=== PATIENT | female | born 1940 | race Caucasian/White ===

== ENCOUNTER 2017-02-14 20:59 | Emergency (ER) | payer BC ==
[2017-02-14 21:10] VITALS: BP 154/80; PULSE 64; TEMP 97.3; BMI 22.3
--- NOTE | 2017-02-14 21:45 | PDOC ---
History of Present Illness - General History Source: Patient Exam Limitations: No Limitations - History of Present Illness Initial Comments: The patient is a 76 yo F with a PMHx of choleolithiasis, hypertension, hyperlipidemia, PA (26 years ago), CAD with 2 stents on Plavix and chronic bronchitis presents with pain and edema of the tip of the R index finger for about a week and a half. Patient states she saw her PCP who put her on Clindamycin. Patient states she first noticed the pain when she was pushing the buttons on a security gate and her nail bent backwards. Patient denies fevers, chills and cough. 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 Allergies: amoxicillin PCP: Dr. Conde <Francesca Moreira - Last Filed: 02/14/17 21:55> <Brigitte Hillman - Last Filed: 02/15/17 04:15> - General Chief Complaint: Pain Stated Complaint: INFECTION RIGHT INDEX FINGER Time Seen by Provider: 02/14/17 21:26 Past History <Francesca Moreira - Last Filed: 02/14/17 21:55> - Past Medical History Anemia: No Asthma: No Cancer: No Cardiac Disorders: Yes (STENTS placed 10 years ago, CAD with [place] 25 years ago) CVA: No COPD: No CHF: No Dementia: No Diabetes: No GI Disorders: No Disorders: No HTN: Yes Hypercholesterolemia: Yes Liver Disease: No Suicide Attempt (Hx): No Seizures: No Thyroid Disease: No - Surgical History Abdominal Surgery: No Appendectomy: No Cardiac Surgery: Yes (2 STENTS) Cholecystectomy: No Lung Surgery: No Neurologic Surgery: No Orthopedic Surgery: No - Immunization History Immunization Up to Date: Yes - Psycho/Social/Smoking Cessation Hx Anxiety: No Suicidal Ideation: No Smoking Status: Yes Smoking History: Current every day smoker Years of Tobacco Use: 40 Have you smoked in the past 12 months: Yes Number of Cigarettes Smoked Daily: 20 Information on smoking cessation initiated: Yes 'Breaking Loose' booklet given: 06/15/16 Hx Alcohol Use: Yes (WINE DAILY) Drug/Substance Use Hx: No Substance Use Type: None Hx Substance Use Treatment: No <Brigitte Hillman - Last Filed: 02/15/17 04:15> - Past Medical History Allergies/Adverse Reactions: Allergies Allergy/AdvReac Type Severity Reaction Status Date / Time amoxicillin Allergy Verified 02/14/17 21:02 Home Medications: Ambulatory Orders Aspirin Coated [Ecotrin -] 325 mg PO DAILY 12/17/11 Atorvastatin Ca [Lipitor] 80 mg PO DAILY 12/17/11 Clopidogrel Bisulfate [Plavix -] 75 mg PO DAILY 12/17/11 Metoprolol Succinate [Toprol XL -] 25 mg PO DAILY 12/17/11 Valsartan [Diovan] 80 mg PO DAILY 12/17/11 Review of Systems - Review of Systems Able to Perform ROS?: Yes Comments:: CONSTITUTIONAL: Absent: fever, no chills, no fatigue EYES: Absent: visual changes ENT: Absent: ear pain, no sore throat CARDIOVASCULAR: Absent: chest pain, no palpitations RESPIRATORY: Absent: cough, no SOB GI: Absent: abdominal pain, no nausea, no vomiting, no constipation, no diarrhea GENITOURINARY: Absent: dysuria, no frequency, no hematuria MUSKULOSKELETAL: +pain and edema of the tip of the R index finger. Absent: back pain, neck pain SKIN: Absent: rash <Francesca Moreira - Last Filed: 02/14/17 21:55> *Physical Exam - Vital Signs Last Vital Signs Temp Pulse Resp BP Pulse Ox 97.3 F L 64 15 154/80 100 02/14/17 21:04 02/14/17 21:04 02/14/17 21:04 02/14/17 21:04 02/14/17 21:04 - Physical Exam Comments: GENERAL: Well-appearing, well-nourished. No apparent distress. HEENT: Normocephalic, atraumatic. PERRL, EOM intact. CARDIOVASCULAR: Normal S1, S2. Regular rate and rhythm. PULMONARY: Clear to auscultation bilaterally. ABDOMEN: Soft, non-distended, non-tender. EXTREMITIES: Normal ROM in all four extremities. No gross deformities. Edematous and markedly tender distal phalanx of the R index finger with fluctuance bilateral periungual. Radial greater than ulnar. No evidence of direct trauma. No drainage. No lymphangitic streaking. Full mobility of finger present. SKIN: Warm, dry. No rash NEUROLOGICAL: No focal neurological deficits. <Francesca Moreira - Last Filed: 02/14/17 21:55> - Vital Signs Last Vital Signs Temp Pulse Resp BP Pulse Ox 97.3 F L 64 15 154/80 100 02/14/17 21:04 02/14/17 21:04 02/14/17 21:04 02/14/17 21:04 02/14/17 21:04 <RafyBrigitte Mcconnell - Last Filed: 02/15/17 04:15> Procedures - Incision and Drainage I&D Site: Right: Paronychia (index finger) Betadine cleansed: No (Hibiclens/ethanol) Anesthesia: 1% Lidocaine Volume(ml): 1 Blade Size: 11 Attempts: 1 Complications: none Dressing: Yes (sterile gauze 2 x 2 followed by tube dressing) Progress: Radial aspect of the right index finger, periungual region of the distal phalanx prepped using Hibiclens/ethanol and sterilely draped. 1 mL of 1% lidocaine injected for local anesthesia. 0.5 cm incision made with a #11 blade. Moderate amount of purulent drainage obtained and sample sent for culture and sensitivity. Wound was explored and further purulent drainage obtained. This was followed by moderate serosanguineous drainage. Because patient was in marked distress with manipulation of the wound, and there was no further purulent drainage or bleeding, packing placed. Bacitracin followed by sterile gauze and tube dressing placed <Brigitte Hillman - Last Filed: 02/15/17 04:15> Medical Decision Making - Medical Decision Making Documentation has been prepared under my direction and personally reviewed by me in its entirety. I attest that this documented accurately reflects all work, treatment, procedures and medical decision making performed by me. As noted above, this 76-year-old woman presents with painful swollen right index fingertip. Patient believes symptoms began when fingernail of this finger bent backward 10 days ago. She was seen by her general doctor 2 days ago and started on clindamycin but presented here because of persistent swelling and pain. Examination shows some fluctuance and tenderness, especially in the radial aspect of the fingernail. There is also a significant amount of tenderness and swelling in the palmar aspect of the distal phalanx, suggestive of pulp space infection. Paronychial incision and drainage performed as noted above. Because of the palmar aspect swelling and tenderness, patient will be referred to hand surgery( Dr. Juan Manuel Cotter information security manager for hand surgery this week). She should call office in the morning to be seen within the next 48 hours. She should return to the emergency room if pain/swelling persist. Meanwhile, patient should continue clindamycin as prescribed and elevate finger as much as possible. Patient asked for pain medication as needed for pain. Since she is currently taking Plavix, will not prescribe nonsteroidal anti-inflammatory medication. Patient did not want anything "strong". Suggested that patient use Tylenol. Patient given 2 tablets of 500 mg acetaminophen to be used at home (patient states that she does not have any acetaminophen at home at this time <Brigitte Hillman - Last Filed: 02/15/17 04:15> *DC/Admit/Observation/Transfer - Attestations Scribe Attestion: Documentation prepared by Francesca Moreira, acting as medical office assistant for Brigitte Hillman MD/DO. <Francesca Moreira - Last Filed: 02/14/17 21:55> <Brigitte Hillman - Last Filed: 02/15/17 04:15> Diagnosis at time of Disposition: Paronychia of right index finger - Discharge Dispostion Disposition: HOME Condition at time of disposition: Stable - Referrals Referrals: Nely Conde MD [Primary Care Provider] - Bayron Cotter MD [Staff Physician] - Call tomorrow - Patient Instructions Printed Discharge Instructions: Paronychia, Smoking Cessation Additional Instructions: Keep original bandage in place, elevating hand as much as possible Continue clindamycin as prescribed Call Dr. Cotter's office tomorrow to make appointment within the next 2 days Return to ER if you have severe pain, worsening swelling/redness or develop fever
[2017-02-14] MEDS ORDERED: ACETAMINOPHEN 500 MG TABLET (FP) ONE (22:42)
== END 2017-02-14 22:42 | disposition home or self-care (01) ==
LOC: FER 20:59
PROC: 0H9QXZZ Drainage of Finger Nail, External Approach (ICD-10-PCS; principal; 2017-02-14)
DX: L03.011 Cellulitis of right finger (principal); I10 Essential (primary) hypertension; E78.5 Hyperlipidemia, unspecified; I25.2 Old myocardial infarction; Z95.5 Presence of coronary angioplasty implant and graft; I25.10 Atherosclerotic heart disease of native coronary artery without angina pectoris; F17.210 Nicotine dependence, cigarettes, uncomplicated
CPT/HCPCS: 87070; 87076; 87186; 87205; 99281-25

== ENCOUNTER 2017-04-18 23:00 | Emergency (ER) | payer BC ==
--- NOTE | 2017-04-18 23:04 | PDOC ---
History of Present Illness - General Chief Complaint: Palpitations Stated Complaint: PALPITATIONS Time Seen by Provider: 04/18/17 23:04 History Source: Patient Exam Limitations: No Limitations - History of Present Illness Initial Comments: 04/18/17 23:45 This is a 76-year-old female with history of hypertension, high cholesterol and palpitations in the past 2 comes in complaining of palpitations. Patient said that they began approximate 4 hours prior to arrival. Patient said palpitations in the past were secondary to abnormal beats. Patient said that the result of them was a medication she was on his which stopped that medication but does not recall the medication. Patient otherwise denies any chest pain, shortness of breath, nausea, diaphoresis or any other associated symptoms. PAST MEDICAL HISTORY: no significant history PAST SURGICAL HISTORY: no significant history FAMILY HISTORY: no pertinant history SOCIAL HISTORY: Pt lives with family and is retired MEDICATIONS: reviewed ALLERGIES: As per nursing notes Review of Systems General: No fevers or chills, no weakness, no weight loss HEENT: No change in vision. No sore throat,. No ear pain CardioVascular: No chest pain or shortness of breath Respiratory:No cough, or wheezing. Gastrointestinal: no nausea, vomitting, diarrhea or constipation, No rectal bleeding Genitourinary: No dysuria, hematuria, or frequency Musculoskeletal: No joint or muscle pain or swelling Neurologic: No headache, vertigo, dizziness or loss of consciousness Psychiatric: nor depression Skin: No rashes or easy bruising Endocrine: no increased thirst or abnormal weight change Allergic: no skin or latex allergy All other systems reviewed and normal Exam: General: Well-nourished well-developed individual, no acute distress HEENT: Throat: Normal, tonsils normal, no erythema or exudate Neck: Supple, no meningeal signs, no lymphadenopathy Eyes::Pupils equal reactive and round, extraocular motion intact Chest: Nontender to palpation Cardiac: S1-S2 normal, irregular rhythm no murmurs rubs or gallops Respiratory: Lungs clear to auscultation bilateral Abdomen: Soft, nondistended, normal bowel sounds, nontender to palpation diffusely Extremities: Warm, dry, no cyanosis, clubbing, or edema Skin: No rashes Neuro: Alert and oriented x3, nonfocal exam, grossly intact, normal gait Psych: Normal mood and affect EKG shows normal sinus rhythm with occas. PVCs no acute ST-T wave changes Assessment and plan: This is a 76-year-old female who comes in complaining of palpitations and no other complaints. Patient's cardiogram does show some PVCs. Patient's palpitations correspond with the PVCs on the monitor. Patient had a workup that was negative for any acute pathology including a normal chest x-ray a normal cardiogram with the exception of the PVCs and a negative troponin. Patient has history of PVCs in the past. Patient has a history of chronic alcohol use as well as smoking which most likely may be contributing to her PVCs as well. Patient was counseled to decrease her alcohol intake and stop smoking. Patient will follow-up with her primary care doctor in the morning. Patient was discharged home with her . Past History - Past Medical History Allergies/Adverse Reactions: Allergies Allergy/AdvReac Type Severity Reaction Status Date / Time amoxicillin Allergy Verified 04/18/17 23:03 Home Medications: Ambulatory Orders Aspirin Coated [Ecotrin -] 325 mg PO DAILY 12/17/11 Atorvastatin Ca [Lipitor] 80 mg PO DAILY 12/17/11 Clopidogrel Bisulfate [Plavix -] 75 mg PO DAILY 12/17/11 Metoprolol Succinate [Toprol XL -] 25 mg PO DAILY 12/17/11 Anemia: No Asthma: No Cancer: No Cardiac Disorders: Yes (STENTS placed 10 years ago, CAD with [place] 25 years ago) CVA: No COPD: No CHF: No Dementia: No Diabetes: No GI Disorders: No Disorders: No HTN: Yes Hypercholesterolemia: Yes Liver Disease: No Seizures: No Thyroid Disease: No - Surgical History Abdominal Surgery: No Appendectomy: No Cardiac Surgery: Yes (2 STENTS) Cholecystectomy: No Lung Surgery: No Neurologic Surgery: No Orthopedic Surgery: No - Immunization History Immunization Up to Date: Yes - Suicide/Smoking/Psychosocial Hx Smoking Status: Yes Smoking History: Current every day smoker Years of Tobacco Use: 40 Have you smoked in the past 12 months: Yes Number of Cigarettes Smoked Daily: 20 'Breaking Loose' booklet given: 06/15/16 Hx Alcohol Use: Yes (WINE DAILY) Drug/Substance Use Hx: No Substance Use Type: None Hx Substance Use Treatment: No Cardiac Specific PMH - Complaint Specific PMHX Pacemaker: No *Physical Exam - Vital Signs Last Vital Signs Temp Pulse Resp BP Pulse Ox 98.5 F 72 18 158/87 100 04/18/17 23:14 04/18/17 23:14 04/18/17 23:14 04/18/17 23:14 04/18/17 23:14 ED Treatment Course - LABORATORY CBC & Chemistry Diagram: 04/18/17 23:14 04/18/17 23:14 - ADDITIONAL ORDERS Additional order review: 04/18/17 23:14 RBC 4.03 MCV 97.1 H MCHC 34.0 RDW 13.2 MPV 8.6 Neutrophils % 49.6 D Lymphocytes % 32.9 D Monocytes % 12.1 H D Eosinophils % 3.7 D Basophils % 1.7 - Medications Given in the ED: ED Medications Discontinued Medications Generic Name Dose Route Start Last Admin Trade Name Williamq PRN Reason Stop Dose Admin Sodium Chloride 1,000 mls @ 1,000 mls/hr 04/18/17 23:48 04/18/17 23:59 Normal Saline - IV 04/19/17 00:47 Not Given .Q1H ONE Sodium Chloride 1,000 mls @ 500 mls/hr 04/18/17 23:57 04/18/17 23:58 Normal Saline - IV 04/19/17 01:56 500 mls/hr .Q1H ONE Administration *DC/Admit/Observation/Transfer Diagnosis at time of Disposition: Palpitations - Discharge Dispostion Disposition: HOME Condition at time of disposition: Stable Admit: No - Referrals Referrals: Nely Conde MD [Primary Care Provider] - - Patient Instructions Printed Discharge Instructions: Smoking Cessation Additional Instructions: Follow-up with your software engineer kernel in the morning. Return to the emergency department immediately with ANY new, persistent or worsening symptoms. Continue any medications as previously prescribed by your physician. You should follow up with your primary doctor as soon as possible regarding today's emergency department visit. . Please make sure your doctor reviews the results of your emergency evaluation. Thank you for coming to the Emergency Department today for your care. It was a pleasure to see you today. Please note that your evaluation is INCOMPLETE until you follow-up with your doctor.
[2017-04-18 23:20] VITALS: BP 158/87; PULSE 72; TEMP 98.5; BMI 21.8
[2017-04-18 23:32] LABS: BASOPHIL 1.7 % (0-2.0); EOSINOPHIL 3.7 % (0-4.5); MEAN CELL VOLUME 97.1 fl (80-96); MEAN PLT VOLUME 8.6 fl (7.5-11.1); NEUTROPHILS 49.6 % (42.8-82.8); PLATELET COUNT 248 K/MM3 (134-434); RDW 13.2 % (11.6-15.6); WHITE BLOOD COUNT 5.9 K/mm3 (4.0-10.8)
[2017-04-18 23:39] LABS: CPK 91 IU/L (26-192)
[2017-04-18 23:45] LABS: ALBUMIN 3.8 g/dl (3.5-5.0); ALK PHOS 64 U/L (32-92); ANION GAP 4 (8-16); BILIRUBIN,TOTAL 0.9 mg/dl (0.2-1.0); CALCIUM 8.5 mg/dl (8.4-10.2); CO2 25 mmol/L (22-28); GLUCOSE,RANDOM 108 mg/dl (74-106); SGOT/AST 16 U/L (10-42); SGPT/ALT 13 U/L (10-40); TOT PROT 6.5 g/dl (6.4-8.3)
[2017-04-18 23:48] LABS: TROPONIN I (DFP) < 0.03 ng/ml (0.03-0.50)
[2017-04-18] MEDS: SODIUM CHLORIDE 1,000 ML IV ONE ×2 (23:57→23:59)
[2017-04-18] MEDS ORDERED: SODIUM CHLORIDE 1,000 ML IV ONE (23:57)
--- NOTE | 2017-04-20 20:43 | EKG ---
Test Reason : Blood Pressure : / mmHG Vent. Rate : 076 BPM Atrial Rate : 076 BPM P-R Int : 130 ms QRS Dur : 078 ms QT Int : 436 ms P-R-T Axes : 039 006 085 degrees QTc Int : 490 ms POOR DATA QUALITY, INTERPRETATION MAY BE ADVERSELY AFFECTED SINUS RHYTHM WITH OCCASIONAL PREMATURE VENTRICULAR COMPLEXES AND PREMATURE ATRIAL COMPLEXES INCOMPLETE RBBB NONSPECIFIC T WAVE ABNORMALITY ABNORMAL ECG NO PREVIOUS ECGS AVAILABLE BASELINE ARTIFACT NO CLINICAL INFORMATION IS AVAILABLE REPEAT EKG IF CLINICALLY INDICATED Confirmed by HENRI GARCIA MD ([id number]) on 04/20/2017 8:43:20 PM Referred By: MD TAMAYO Confirmed By:HENRI GARCIA MD
== END 2017-04-19 00:18 | disposition home or self-care (01) ==
LOC: FER 23:00
PROC: 3E0337Z Introduction of Electrolytic and Water Balance Substance into Peripheral Vein, Percutaneous Approach (ICD-10-PCS; principal; 2017-04-18)
DX: R00.2 Palpitations (principal); E78.00 Pure hypercholesterolemia, unspecified; I10 Essential (primary) hypertension; I25.10 Atherosclerotic heart disease of native coronary artery without angina pectoris; Z95.5 Presence of coronary angioplasty implant and graft; I25.2 Old myocardial infarction
CPT/HCPCS: 36415; 80053; 84484; 85025; 93005; 99283-25

== ENCOUNTER 2017-06-12 17:39 | Emergency (ER) | payer BC ==
[2017-06-12 17:53] VITALS: PULSE 80; TEMP 97.3; BMI 21.5
--- NOTE | 2017-06-12 18:02 | PDOC ---
History of Present Illness - General History Source: Patient Exam Limitations: No Limitations - History of Present Illness Initial Comments: 06/12/17 18:18 The patient is a 76 year old female with a significant past medical history HTN and HLD who presents to the ED with complaints of lightheadedness earlier today. The patient states she went out to eat earlier today when she ordered a cup of espresso coffee. Patient normally drinks one cup of decaf at her baseline. She reports a sudden onset of lightheadedness, shakiness, and her ear got hot secondary to drinking the cup of coffee. She states her blood pressure was 189/88. Patient also states she took her medication 3 hours later than normal. Denies chest pain or shortness of breath. Denies fever or chills. Denies abdominal pain, nausea, vomiting, or diarrhea. Denies any other symptoms. <Malik Johnston - Last Filed: 06/12/17 18:18> <Francie Ordaz - Last Filed: 06/16/17 08:09> - General Chief Complaint: Blood Pressure Problem Stated Complaint: HIGH BLOOD PRESSURE, LIGHTHEADED Time Seen by Provider: 06/12/17 17:41 Past History <Malik Johnston - Last Filed: 06/12/17 18:18> - Past Medical History Anemia: No Asthma: No Cancer: No Cardiac Disorders: Yes (STENTS placed 10 years ago, CAD with [place] 25 years ago) CVA: No COPD: No CHF: No DVT: No Dementia: No Diabetes: No GI Disorders: No Disorders: No HTN: Yes Hypercholesterolemia: Yes Liver Disease: No Seizures: No Thyroid Disease: No - Surgical History Abdominal Surgery: No Appendectomy: No Cardiac Surgery: Yes (2 STENTS) Cholecystectomy: No Lung Surgery: No Neurologic Surgery: No Orthopedic Surgery: No - Immunization History Immunization Up to Date: Yes - Suicide/Smoking/Psychosocial Hx Smoking Status: Yes Smoking History: Current every day smoker Years of Tobacco Use: 40 Have you smoked in the past 12 months: Yes Number of Cigarettes Smoked Daily: 20 Information on smoking cessation initiated: Yes 'Breaking Loose' booklet given: 06/15/16 Hx Alcohol Use: Yes (WINE NIGHTLY) Drug/Substance Use Hx: No Substance Use Type: None Hx Substance Use Treatment: No <Francie Ordaz - Last Filed: 06/16/17 08:09> - Past Medical History Allergies/Adverse Reactions: Allergies Allergy/AdvReac Type Severity Reaction Status Date / Time amoxicillin Allergy Verified 04/18/17 23:03 Home Medications: Ambulatory Orders Aspirin Coated [Ecotrin -] 325 mg PO DAILY 12/17/11 Atorvastatin Ca [Lipitor] 80 mg PO DAILY 12/17/11 Clopidogrel Bisulfate [Plavix -] 75 mg PO DAILY 12/17/11 Metoprolol Succinate [Toprol XL -] 50 mg PO DAILY 12/17/11 Losartan Potassium 100 mg PO DAILY 06/12/17 Review of Systems - Review of Systems Able to Perform ROS?: Yes Comments:: 06/12/17 18:18 GENERAL/CONSTITUTIONAL: No fever or chills. No weakness. HEAD, EYES, EARS, NOSE AND THROAT: No change in vision. No ear pain or discharge. No sore throat. CARDIOVASCULAR: No chest pain or shortness of breath. RESPIRATORY: No cough, wheezing, or hemoptysis. GASTROINTESTINAL: No nausea, vomiting, diarrhea or constipation. GENITOURINARY: No dysuria, frequency, or change in urination. MUSCULOSKELETAL: No joint or muscle swelling or pain. No neck or back pain. SKIN: No rash NEUROLOGIC: + lightheadedness, shakiness, ear warmth. No headache, vertigo, loss of consciousness. ENDOCRINE: No increased thirst. No abnormal weight change. HEMATOLOGIC/LYMPHATIC: No anemia, easy bleeding, or history of blood clots. ALLERGIC/IMMUNOLOGIC: No hives or skin allergy. All Other Systems: Reviewed and Negative <Malik Johnston - Last Filed: 06/12/17 18:18> *Physical Exam - Vital Signs Last Vital Signs Temp Pulse Resp BP Pulse Ox 97.3 F L 80 16 182/94 97 06/12/17 17:40 06/12/17 17:40 06/12/17 17:40 06/12/17 17:40 06/12/17 17:40 - Physical Exam Comments: 06/12/17 18:19 GENERAL: Awake, alert, and fully oriented, in no acute distress HEAD: No signs of trauma EYES: PERRLA, EOMI, sclera anicteric, conjunctiva clear ENT: Auricles normal inspection, hearing grossly normal, nares patent, oropharynx clear without exudates. Moist mucosa NECK: Normal ROM, supple, no lymphadenopathy, JVD, or masses LUNGS: Breath sounds equal, clear to auscultation bilaterally. No wheezes, and no crackles HEART: Regular rate and rhythm, normal S1 and S2, no murmurs, rubs or gallops ABDOMEN: Soft, nontender, normoactive bowel sounds. No guarding, no rebound. No masses EXTREMITIES: Normal range of motion, no edema. No clubbing or cyanosis. No cords, erythema, or tenderness NEUROLOGICAL: Normal speech SKIN: Warm, Dry, normal turgor, no rashes or lesions noted. <Malik Johnston - Last Filed: 06/12/17 18:18> - Vital Signs Last Vital Signs Temp Pulse Resp BP Pulse Ox 97.3 F L 80 16 182/94 97 06/12/17 17:40 06/12/17 17:40 06/12/17 17:40 06/12/17 17:40 06/12/17 17:40 <Francie Ordaz - Last Filed: 06/16/17 08:09> Heart Score/ECG Review - ECG Impressions Comment:: EKG read 17:59- NSR 73 bpm, T inv aVL, V5-6. Prior EKG Mar 2017 with flattened T waves laterally. Prior EKG Apr 2015 with inv T waves laterally. <Francie Ordaz - Last Filed: 06/16/17 08:09> ED Treatment Course - LABORATORY CBC & Chemistry Diagram: 06/12/17 18:15 06/12/17 18:10 <Francie Ordaz - Last Filed: 06/16/17 08:09> Medical Decision Making - Medical Decision Making Symptoms likely due to caffeine intake as well as taking medication later than usual. Labs including CE wnl. Stable for DC home. Will f/u with her PMD within 2 days for BP check. <Francie Ordaz - Last Filed: 06/16/17 08:09> *DC/Admit/Observation/Transfer - Attestations Scribe Attestion: 06/12/17 18:19 Documentation prepared by Malik Johnston, acting as medical service technician for Francie Ordaz MD <Malik Johnston - Last Filed: 06/12/17 18:18> - Discharge Dispostion Admit: No <Tabby Ordazzabeth - Last Filed: 06/16/17 08:09> Diagnosis at time of Disposition: High blood pressure Qualifiers: Hypertension type: essential hypertension Qualified Code(s): I10 - Essential ( primary) hypertension - Discharge Dispostion Disposition: HOME Condition at time of disposition: Stable - Referrals Referrals: Nely Conde MD [Primary Care Provider] - - Patient Instructions - Post Discharge Activity
[2017-06-12 18:29] LABS: EOSINOPHIL 2.8 % (0-4.5); MCH 32.8 pg (25.7-33.7); MCHC 34.2 g/dl (32.0-36.0); MEAN CELL VOLUME 95.8 fl (80-96); NEUTROPHILS 65.4 % (42.8-82.8); PLATELET COUNT 204 K/MM3 (134-434); RDW 13.3 % (11.6-15.6); WHITE BLOOD COUNT 6.2 K/mm3 (4.0-10.8)
[2017-06-12 18:40] LABS: ALBUMIN 3.8 g/dl (3.5-5.0); ALK PHOS 68 U/L (32-92); ANION GAP 6 (8-16); CALCIUM 9.4 mg/dl (8.4-10.2); CO2 25 mmol/L (22-28); CPK 78 IU/L (26-192); CREATININE 0.9 mg/dl (0.6-1.3); GLUCOSE,RANDOM 129 mg/dl (74-106); SGOT/AST 16 U/L (10-42); SGPT/ALT 11 U/L (10-40); TOT PROT 6.7 g/dl (6.4-8.3)
[2017-06-12 18:50] VITALS: BP 148/73
[2017-06-12 19:03] LABS: TROPONIN I (DFP) < 0.03 ng/ml (0.03-0.50)
--- NOTE | 2017-06-13 17:46 | EKG ---
Test Reason : Blood Pressure : / mmHG Vent. Rate : 073 BPM Atrial Rate : 073 BPM P-R Int : 138 ms QRS Dur : 084 ms QT Int : 406 ms P-R-T Axes : 071 020 092 degrees QTc Int : 447 ms SINUS RHYTHM NONSPECIFIC ST AND T WAVE ABNORMALITY RSR' OR QR PATTERN IN V1 SUGGESTS RIGHT VENTRICULAR CONDUCTION DELAY ABNORMAL ECG WHEN COMPARED WITH ECG OF 18-APR-2017 23:57, PREMATURE VENTRICULAR COMPLEXES ARE NO LONGER PRESENT PREMATURE ATRIAL COMPLEXES ARE NO LONGER PRESENT Confirmed by KEELY RACHEL MD ([id number]) on 06/13/2017 5:46:15 PM Referred By: BIJAL Confirmed By:KEELY RACHEL MD
== END 2017-06-12 19:09 | disposition home or self-care (01) ==
LOC: SUPCPDRO 17:39 → FER 17:39
DX: I10 Essential (primary) hypertension (principal); I25.10 Atherosclerotic heart disease of native coronary artery without angina pectoris; I25.2 Old myocardial infarction; E78.5 Hyperlipidemia, unspecified; F17.210 Nicotine dependence, cigarettes, uncomplicated; Z95.5 Presence of coronary angioplasty implant and graft; Z88.1 Allergy status to other antibiotic agents
CPT/HCPCS: 36415; 71010-TC; 80053; 82550; 84484; 85025; 93005; 99283-25

== ENCOUNTER 2018-02-18 07:32 | Emergency (ER) | payer BC ==
[2018-02-18 07:48] VITALS: BP 184/91; PULSE 72; TEMP 97.8; BMI 22.8
--- NOTE | 2018-02-18 08:13 | PDOC ---
History of Present Illness - General Chief Complaint: Lightheaded Stated Complaint: DIZZY, Time Seen by Provider: 02/18/18 07:56 History Source: Patient Exam Limitations: No Limitations - History of Present Illness Initial Comments: 02/18/18 08:13 77y F hx of htn, cad, presents with dizziness. The pt woke up with some dizziness that she describes as if she felt lke she was on a boat. it was intermittent,lating for a minute or two before resolving. at rest she is fine. pt denies any n/v, vision changes/diplopia, dysarthria, neck pain, chest pain, palpitations, back pain, numbness/tingling/weakness. No recent head injuries or trauma. Pt denies any tinnitus, hearing changes, recent URI, fev/erchills, cough, melena/bpr/diarrhea, dysuria. pt notes that she also has been having an itchy scalp - she went to her PMD who didnt see anything, went to urgent are who thought they found a lice and she was treated last week, and then again last night. PMD: Dr. Gerson Barrios Past History - Past Medical History Allergies/Adverse Reactions: Allergies Allergy/AdvReac Type Severity Reaction Status Date / Time amoxicillin Allergy Verified 02/18/18 07:35 Home Medications: Ambulatory Orders Aspirin Coated [Ecotrin -] 325 mg PO DAILY 12/17/11 Atorvastatin Ca [Lipitor] 80 mg PO DAILY 12/17/11 Clopidogrel Bisulfate [Plavix -] 75 mg PO DAILY 12/17/11 Metoprolol Succinate [Toprol XL -] 50 mg PO DAILY 12/17/11 Losartan Potassium 100 mg PO DAILY 06/12/17 Meclizine HCl [Antivert -] 25 mg PO TID PRN #12 tablet 02/18/18 Permethrin 5% Topical Cream [Elimite -] 1 applic TP ONCE 02/18/18 Anemia: No Asthma: No Cancer: No Cardiac Disorders: Yes (STENTS placed 10 years ago, CAD with NH 25 years ago) CVA: No COPD: No CHF: No DVT: No Dementia: No Diabetes: No GI Disorders: No Disorders: No HTN: Yes Hypercholesterolemia: Yes Liver Disease: No Seizures: No Thyroid Disease: No - Surgical History Abdominal Surgery: No Appendectomy: No Cardiac Surgery: Yes (2 STENTS) Cholecystectomy: No Lung Surgery: No Neurologic Surgery: No Orthopedic Surgery: No - Immunization History Immunization Up to Date: Yes - Suicide/Smoking/Psychosocial Hx Smoking Status: Yes Smoking History: Current every day smoker Years of Tobacco Use: 40 Have you smoked in the past 12 months: Yes Number of Cigarettes Smoked Daily: 20 Information on smoking cessation initiated: Yes 'Breaking Loose' booklet given: 02/18/18 Hx Alcohol Use: No Drug/Substance Use Hx: No Substance Use Type: None Hx Substance Use Treatment: No Review of Systems - Review of Systems Able to Perform ROS?: Yes Comments:: 02/18/18 09:04 Constitutional - no reported Fever, Chills, HEENT: no reported vision changes, sore throat Respiratory: no reported cough, sob, hemoptysis Cardiac: no reported chest pain, palpitations, light headedness, leg swelling Abd/GI: no reported abd pain, nausea, vomiting, blood per rectum, melena, diarrhea : no reported dysuria, frequency, discharge Musculskelatal - no reported back pain, joint swelling skin - itchy scalp no reported bruising, erythema, rash neurological: +dizziness no reported headache, numbness, focal weakness, tingling, ataxia, hematologic: no reported easy bruising, easy bleeding *Physical Exam - Vital Signs Last Vital Signs Temp Pulse Resp BP Pulse Ox 97.8 F 72 20 184/91 97 02/18/18 07:33 02/18/18 07:33 02/18/18 07:33 02/18/18 07:33 02/18/18 07:33 - Physical Exam Comments: 02/18/18 09:05 GENERAL: The patient is awake, alert, and fully oriented, Nontoxic - in no acute distress. HEAD: Normocephalic, atraumatic. EYES: extraocular movements intact, sclera anicteric, conjunctiva clear. ENT: Normal voice, Moist mucous membranes. NECK: Normal range of motion, supple LUNGS: Breath sounds equal, clear to auscultation bilaterally. No wheezes, no rhonchi, no rales. HEART: Regular rate and rhythm, normal S1 and S2 without murmur, rub or gallop. ABDOMEN: Soft, nontender, normoactive bowel sounds. No guarding, no rebound. . No CVA tenderness EXTREMITIES: Normal range of motion, no edema. No clubbing or cyanosis. No cords, erythema, or tenderness. PSYCH: Normal mood, normal affect. SKIN: Warm, Dry, normal turgor, no foreign materials (only flaking skin) on scalp NEURO: Mental status: The patient is oriented x3. Cranial nerves: Cranial nerves II through XII are intact Motor: The upper extremities are 5 over 5 in all muscle groups. The lower extremities are 5 over 5 in all muscle groups. Negative pronator drift Sensation: Sensation is intact to light touch throughout. romberg negative Cerebellar: [id number] is normal in both upper extremities. rapid alternating movements are normal. Reflexes: demnished patellar reflexes b/l, normal bracheoradiollis reflex b/l Gait: Normal. Heel and toe walking are normal. Tandem gait is normal. Heart Score/ECG Review - ECG Impressions Comment:: 02/18/18 09:32 Twelve-lead EKG was performed and reviewed by me. There is normal sinus rhythm with a normal rate. Rate of 62 The axis is normal. The intervals are normal. There is normal R wave progression nonspecific T wave abnormality ED Treatment Course - LABORATORY CBC & Chemistry Diagram: 02/18/18 08:45 02/18/18 08:45 Medical Decision Making - Medical Decision Making 02/18/18 09:07 suspect peripheral vertigo inconsistent with central vertigo consider possible anemia, metabolic dernagement, will give meclizine basic labs will reassess, anticipate dc with pmd fu 02/18/18 09:18 labs unremarkble pt feeling improved will dc with pmd fu anms mclizine return precautions were discussed I discussed the physical exam findings, ancillary test results and final diagnoses with the patient. I answered all of the patient's questions. The patient was satisfied with the care received and felt comfortable with the discharge plan and treatment plan. The patient will call their primary care physician within 24 hours to arrange follow-up and will return to the Emergency Department with any new, persistent or worsening symptoms. *DC/Admit/Observation/Transfer Diagnosis at time of Disposition: Vertigo - Discharge Dispostion Disposition: HOME Condition at time of disposition: Improved Decision to Admit order: No - Prescriptions Prescriptions: Meclizine HCl [Antivert -] 25 mg PO TID PRN #12 tablet PRN Reason: Vertigo - Referrals Referrals: Nely Conde MD [Staff Physician] - - Patient Instructions Printed Discharge Instructions: DI for Vertigo Additional Instructions: Return to the emergency department immediately with ANY new, persistent or worsening symptoms including any headache, difficulty with speech, double vision , neck pain or any other concerns. Take the mclizine as needed for your dizziness. You MUST call and follow up with your doctor in 2-3 days for further evaluation of your symptoms. Results were discussed with you. Please make sure your doctor reviews the results of your emergency evaluation. Print Language: MACEDONIAN - Post Discharge Activity
[2018-02-18] MEDS ORDERED: MECLIZINE HCL 25 MG TABLET (FP) PO ONE (08:59)
[2018-02-18 09:01] LABS: BASO % 0.9 % (0-2.0); EOS % 5.7 % (0-4.5); HEMATOCRIT 41.3 % (32.4-45.2); HEMOGLOBIN 14.5 GM/dl (10.7-15.3); LYMPH % 20.3 % (8-40); MCH 34.1 pg (25.7-33.7); MEAN CELL VOLUME 97.3 fl (80-96); MEAN PLT VOLUME 8.1 fl (7.5-11.1); NEUT % 63.1 % (42.8-82.8); PLATELET COUNT 233 K/MM3 (134-434); RBC 4.24 M/mm3 (3.60-5.2); RDW 13.3 % (11.6-15.6); WHITE BLOOD COUNT 4.8 K/mm3 (4.0-10.8)
[2018-02-18] MEDS ORDERED: MECLIZINE HCL 25 MG TABLET (FP) ONE (09:01)
[2018-02-18 09:03] LABS: ALBUMIN 3.8 g/dl (3.5-5.0); ALK PHOS 68 U/L (32-92); ANION GAP 6 (8-16); BILIRUBIN,TOTAL 1.1 mg/dl (0.2-1.0); BLOOD UREA NITROGEN 16 mg/dl (7-18); CALCIUM 8.8 mg/dl (8.4-10.2); CHLORIDE 103 mmol/L (98-107); CO2 26 mmol/L (22-28); GLUCOSE,RANDOM 99 mg/dl (74-106); POTASSIUM 4.8 mmol/L (3.5-5.1); SGOT/AST 17 U/L (10-42); SGPT/ALT 12 U/L (10-40); SODIUM 135 mmol/L (136-145); TOT PROT 6.9 g/dl (6.4-8.3)
--- NOTE | 2018-02-21 10:51 | EKG ---
Test Reason : Blood Pressure : / mmHG Vent. Rate : 062 BPM Atrial Rate : 062 BPM P-R Int : 142 ms QRS Dur : 078 ms QT Int : 440 ms P-R-T Axes : 023 -02 087 degrees QTc Int : 446 ms NORMAL SINUS RHYTHM NONSPECIFIC T WAVE ABNORMALITY ABNORMAL ECG WHEN COMPARED WITH ECG OF 12-JUN-2017 17:57, NO SIGNIFICANT CHANGE WAS FOUND Confirmed by JAG RIOS MD ([id number]) on 02/21/2018 10:50:58 AM Referred By: BIANCA Confirmed By:JAG RIOS MD
== END 2018-02-18 09:47 | disposition home or self-care (01) ==
LOC: FER 07:32
DX: R42 Dizziness and giddiness (principal); I25.10 Atherosclerotic heart disease of native coronary artery without angina pectoris; I10 Essential (primary) hypertension
CPT/HCPCS: 36415; 80053; 85025; 93005; 99282-25

== ENCOUNTER 2021-09-27 18:40 | Emergency (ER) | payer BC ==
[2021-09-27 19:04] VITALS: TEMP 97.7; BMI 22.3
[2021-09-27] MEDS ORDERED: LACTULOSE 20 GM/30 ML UDC (FOR ORAL USE ONLY) PO ONE (19:31)
[2021-09-27] MEDS ORDERED: LACTULOSE 20 GM/30 ML UDC (FOR ORAL USE ONLY) ONE (19:35)
[2021-09-27 19:56] LABS: EPITHELIAL CELLS FEW /hpf; URINE HYALINE CAST 0-1 /lpf; URINE MUCUS 1+
[2021-09-27] MEDS ORDERED: LOSARTAN POTASSIUM 50 MG TABLET PO ONE (21:16)
[2021-09-27] MEDS ORDERED: METOPROLOL TARTRATE 50 MG TABLET (FP) PO ONE (21:16)
[2021-09-27] MEDS ORDERED: CEPHALEXIN 250 MG/5 ML ORAL SUSPENSION PO ONE (21:16)
[2021-09-27 21:19] VITALS: BP 148/89; PULSE 76
[2021-09-27] MEDS ORDERED: METOPROLOL TARTRATE 50 MG TABLET (FP) ONE ×2 (21:23→21:28)
[2021-09-27] MEDS ORDERED: LOSARTAN POTASSIUM 50 MG TABLET ONE ×2 (21:23→21:28)
[2021-09-27] MEDS ORDERED: CEPHALEXIN MONOHYDRATE 500 MG CAPSULE (UD) ONE ×2 (21:23→21:28)
[2021-09-27 21:57] LABS: INR 1.08 (0.83-1.09); PROTHROMBIN TIME (PATIENT) 12.4 SEC (9.7-13.0)
[2021-09-27 22:03] LABS: BILIRUBIN,TOTAL 2.2 mg/dl (0.2-1); CALCIUM 10.5 mg/dl (8.5-10); CREATININE 1.1 mg/dl (0.55-1.3); TOT PROT 7.4 g/dl (6.4-8.2)
[2021-09-27 22:16] LABS: EOS % 0.9 % (0-4.5); HEMATOCRIT 41.8 % (32.4-45.2); LYMPH % 18.3 % (8-40); MCH 32.9 pg (25.7-33.7); MCHC 33.5 g/dl (32.0-36.0); MEAN CELL VOLUME 98.1 fl (80-96); MEAN PLT VOLUME 8.8 fl (7.5-11.1); MONO % 7.8 % (3.8-10.2); PLATELET COUNT 230 10^3/uL (134-434); RBC 4.26 M/mm3 (3.60-5.2); RDW 13.5 % (11.6-15.6); WHITE BLOOD COUNT 5.8 K/mm3 (4.0-10.0)
[2021-09-27 23:09] LABS: SARS AG REFLEX COV19 SEND OUT negative (Negative)
[2021-09-29 18:07] LABS: SARS-CoV-2 NAA Not Detected (Not Detected)
== END 2021-09-27 21:46 | disposition short-term general hospital (02) ==
LOC: FER 18:40
DX: I71.4 Abdominal aortic aneurysm, without rupture (principal)
CPT/HCPCS: 36415; 74176-TC; 80053; 81003; 81015; 84484; 85025; 85610; 87086; 87426; 93005; 99285-25; C9803; U0003; U0005

== ENCOUNTER 2023-12-31 17:49 | Emergency (ER) | payer BC ==
[2023-12-31 17:56] VITALS: BP 140/74; PULSE 72; RESP 14; TEMP 98.2; BMI 21.2
== END 2023-12-31 20:21 | disposition home or self-care (01) ==
LOC: FER 17:49
DX: M79.81 Nontraumatic hematoma of soft tissue (principal)
CPT/HCPCS: 99282-25